=== PATIENT | female | born 2000 | race Two or more races ===

== ENCOUNTER 2023-05-17 13:05 | Outpatient (CLI) | payer OTHER | END 2023-05-17 13:10 | disposition home or self-care (01) | LOC: PRENATAL 13:05 | PROVIDERS: ATTEND Obstetrics & Gynecology Maternal & Fetal Medicine | DX: O36.80X0 Pregnancy with inconclusive fetal viability, not applicable or unspecified (principal); Z36.82 Encounter for antenatal screening for nuchal translucency; Z36.9 Encounter for antenatal screening, unspecified; Z3A.13 13 weeks gestation of pregnancy ==

== ENCOUNTER 2023-06-29 12:33 | Outpatient (CLI) | payer OTHER | END 2023-06-29 12:34 | disposition home or self-care (01) | LOC: PRENATAL 12:33 | PROVIDERS: ATTEND Obstetrics & Gynecology Maternal & Fetal Medicine | DX: O35.3XX0 Maternal care for (suspected) damage to fetus from viral disease in mother, not applicable or unspecified (principal); O44.00 Complete placenta previa NOS or without hemorrhage, unspecified trimester; Z3A.19 19 weeks gestation of pregnancy ==

== ENCOUNTER 2024-12-30 20:53 | Emergency (ER) | payer OTHER ==
[~2024-12-30] VITALS: Ht 162.6 cm; Wt 63.5 kg
[~2024-12-30 20:53] MED LIST: ADULT LOW DOSE81 M1; PRENA1 TRUE CO1 EACH PO
[2024-12-30] MEDS ORDERED: CLINDAMYCIN PHOSPHATE 150 MG/ML (300mg) IM STA (23:09)
[2024-12-30] MEDS ORDERED: KETOROLAC TROMETHAMINE 30 MG VIAL IM STA (23:10)
[2024-12-30] MEDS ORDERED: DOXYCYCLINE HY100 M2 PO (23:16)
[2024-12-30] MEDS ORDERED: IBU600 MG PO (23:16)
[2024-12-30] MEDS ORDERED: MUPIROCIN22 GM TOP (23:22)
== END 2024-12-30 23:31 | disposition home or self-care (01) ==
LOC: ER 20:53
DX: L02.91 Cutaneous abscess, unspecified (principal)

== ENCOUNTER 2025-02-01 21:19 | Emergency (ER) | payer OTHER ==
[~2025-02-01] VITALS: Ht 162.6 cm; Wt 57.2 kg
[~2025-02-01 21:19] MED LIST changes: +DOXYCYCLINE HY100 M2 PO; +IBU600 MG PO; +MUPIROCIN22 GM TOP
[2025-02-01] MEDS ORDERED: CEFTRIAXONE SODIUM 1,000 MG VIAL IM STA (22:40)
[2025-02-01] MEDS ORDERED: KETOROLAC TROMETHAMINE 30 MG VIAL IM STA (22:41)
== END 2025-02-01 23:16 | disposition home or self-care (01) ==
LOC: ER 21:19
DX: L03.317 Cellulitis of buttock (principal); L02.31 Cutaneous abscess of buttock